=== PATIENT | female | born 1995 | race Caucasian/White ===

== ENCOUNTER 2022-10-08 11:15 | Emergency (ER) | payer BC ==
[~2022-10-08] VITALS: Ht 177.8 cm; Wt 189.5 kg
[2022-10-08 11:22] VITALS: TEMP 97.6
[2022-10-08 11:52] LABS: COLLECTION METHOD CLEAN CATCH
[2022-10-08 12:10] LABS: MUCOUS Present (NOT PRESENT); SQUAMOUS EPITHELIAL 0-2 /hpf (0-10); URINE BACTERIA None Seen /hpf (NONE SEEN); URINE RBC >50 /hpf (0-2)
[2022-10-08 12:11] LABS: URINE APPEARANCE Cloudy (CLEAR/HAZY); URINE BLOOD 3+ (NEGATIVE); URINE COLOR OTHER (YELLOW); URINE GLUCOSE Negative (NEGATIVE); URINE KETONE TRACE (NEGATIVE); URINE NITRATE Negative (NEGATIVE); URINE PROTEIN(semi-quant) 2+ (NEGATIVE); URINE UROBILINOGEN 0.2 E.U/dL (0.2-1.0)
[2022-10-08] MEDS ORDERED: MINIPRESS2 MG (12:20)
[2022-10-08] MEDS ORDERED: MOBIC15 MG PO (12:20)
[2022-10-08] MEDS ORDERED: DEPO-PROVER150 MG/M1 IM (12:20)
[2022-10-08] MEDS ORDERED: PROZAC40 MG PO (12:21)
[2022-10-08] MEDS ORDERED: ADIPEX-P37.5 MG PO (12:21)
[2022-10-08] MEDS ORDERED: CLARITIN 1010 MG/TAB (12:21)
[2022-10-08] MEDS ORDERED: BUSPIRONE HCL7.5 MG PO (12:21)
[2022-10-08] MEDS ORDERED: LOPRESSOR 225 MG/TAB PO (12:21)
[2022-10-08] MEDS ORDERED: WELLBUTRIN SR150 M1 PO (12:22)
[2022-10-08] MEDS ORDERED: DITROPAN 5MG TAB5 MG (12:22)
[2022-10-08] MEDS ORDERED: [UNRECOGNIZED DRUG - REMARK] (12:22)
[2022-10-08] MEDS ORDERED: EMGALITY120 MG/1 M SQ (12:22)
[2022-10-08] MEDS ORDERED: NEURONTIN600 MG/TAB PO (12:22)
[2022-10-08] MEDS ORDERED: NURTEC ODT75 MG PO (12:23)
[2022-10-08] MEDS ORDERED: ZOFRAN ODT4 MG PO ×2 (12:23→13:37)
[2022-10-08] MEDS ORDERED: PEPCID 20MG TAB20 MG (12:23)
[2022-10-08] MEDS ORDERED: ONE-A-DAY ESSE1 EACH PO (12:23)
[2022-10-08 12:37] LABS: BASO # 0.1 K/mm3 (0.0-0.2); BASO % 0.6 % (0.0-2.0); EOS # 0.3 K/mm3 (0.0-0.7); EOS % 3.2 % (0.0-4.0); GRAN # 6.6 K/mm3 (1.4-6.5); GRAN % 69.9 % (42.2-75.2); HEMATOCRIT 38.6 % (37.0-47.0); HEMOGLOBIN 12.8 g/dl (12.5-16.0); LYMPH # 2.1 K/mm3 (1.2-3.4); LYMPH % 21.6 % (20.0-51.0); MEAN CELL VOLUME 82 fl (80.0-100.0); MEAN CORPUSCULAR HEMOGLOBIN 27 pg (27-31); MEAN CORPUSCULAR HGB CONC 33 g/dl (33.0-37.0); MEAN PLATELET VOLUME 9.8 fl (7.4-10.4); MONO # 0.4 K/mm3 (0.1-0.6); MONO % 4.4 % (1.7-9.3); PLATELET COUNT 260 K/mm3 (130-400); RED BLOOD COUNT 4.73 M/mm3 (4.10-5.30); REDCELL DISTRIBUTION WIDTH-CV 14.4 % (11.5-14.5)
[2022-10-08 12:47] LABS: ALBUMIN 3.7 gm/dL (3.5-5.0); BILIRUBIN,TOTAL 0.7 mg/dL (0.2-1.2); CALCIUM 9.4 mg/dL (8.4-10.2); CREATININE, serum 0.89 mg/dL (0.57-1.11); POTASSIUM 3.8 mmol/L (3.5-4.5); TOTAL PROTEIN 7.3 gm/dL (6.2-8.1)
[2022-10-08] MEDS ORDERED: NORCO 325 MG-51 TAB PO (13:36)
[2022-10-08] MEDS ORDERED: CEPHALEXIN500 M1 PO (13:36)
[2022-10-08 14:17] VITALS: BP 133/89; PULSE 77
== END 2022-10-08 14:20 | disposition home or self-care (01) ==
LOC: COL.ER 11:15
PROVIDERS: Emergency Medicine; Physician Assistant
DX: N30.90 Cystitis, unspecified without hematuria (principal); E66.9 Obesity, unspecified; Z87.442 Personal history of urinary calculi; Z68.43 Body mass index [BMI] 50.0-59.9, adult
CPT/HCPCS: J0696; J1885; J2270; J2405; J7030

== ENCOUNTER 2023-08-02 06:07 | Day surgery (SDC) | payer MEDICAID ==
[~2023-08-02] VITALS: Ht 177.8 cm; Wt 180.7 kg
[~2023-08-02 06:07] MED LIST: ADIPEX-P37.5 MG PO; BUSPIRONE HCL7.5 MG PO; CEPHALEXIN500 M1 PO; CLARITIN 1010 MG/TAB; DEPO-PROVER150 MG/M1 IM; DITROPAN 5MG TAB5 MG; EMGALITY120 MG/1 M SQ; LOPRESSOR 225 MG/TAB PO; MINIPRESS2 MG; MOBIC15 MG PO; NEURONTIN600 MG/TAB PO; NORCO 325 MG-51 TAB PO; NURTEC ODT75 MG PO; ONE-A-DAY ESSE1 EACH PO; PEPCID 20MG TAB20 MG; PROZAC40 MG PO; WELLBUTRIN SR150 M1 PO; ZOFRAN ODT4 MG PO; [UNRECOGNIZED DRUG - REMARK]
[2023-08-02] MEDS ORDERED: FLOMAX 0.40.4 MG/CAP PO (07:03)
[2023-08-02] MEDS ORDERED: PROTONIX 40MG T40 MG PO (07:04)
[2023-08-02] MEDS ORDERED: NATURE'S BLE1000 MCG (07:05)
[2023-08-02] MEDS ORDERED: CLINDAGEL 40 ML40 ML TOP (07:08)
[2023-08-02] MEDS ORDERED: DEPO-PROVE150 MG/1 M IM (07:09)
[2023-08-02] MEDS ORDERED: GLUCOPHAGE500 MG/TAB PO (07:12)
[2023-08-02 08:27] VITALS: BP 126/80; PULSE 64; TEMP 97
[2023-08-02 08:41] VITALS: BP 119/84; PULSE 65
[2023-08-02 08:48] VITALS: BP 138/97; PULSE 72; TEMP 97
[2023-08-02 08:56] VITALS: BP 125/77; PULSE 69
--- NOTE | 2023-08-02 09:26 | NUR ---
0827-PATIENT ARRIVED TO [facility] VIA CART, ALERT AND ORIENTED ON ARRIVAL. FRIEND WAITING AT BEDSIDE. VITAL SIGNS TAKEN, VSS. PATIENT DENIES PAIN OR NAUSEA. REPORT OBTAINED FROM BERNADINE HARRELL. 0841-PT TOLERATING PO INTAKE, VSS. DENIES COMPLAINTS 0856-DISCHARGE PAPERWORK REVIEWED WITH PT AND FRIEND, QUESTIONS INVITED. IV CATHETER DISCONTINUED, TIP INTACT. PRESSURE HELD AND BANDAGE APPLIED. PATIENT DRESSED INDEPENDENTLY 0910-DR. CARTER AT BEDSIDE, DISCUSSED PROCEDURE FINDINGS, QUESTIONS INVITED. 0918-PATIENT DISCHARGED HOME TO [facility] VIA WHEELCHAIR, ACCOMPANIED BY FRIEND. ALL BELONGINGS AND DC PAPERWORK SENT WITH PT.
== END 2023-08-02 09:18 | disposition home or self-care (01) ==
LOC: SDCO 06:07
DX: K22.4 Dyskinesia of esophagus (principal); R07.89 Other chest pain
CPT/HCPCS: J2704; J7120

== ENCOUNTER 2023-08-19 10:52 | Emergency (ER) | payer MEDICAID ==
[~2023-08-19] VITALS: Ht 177.8 cm; Wt 180.9 kg
[~2023-08-19 10:52] MED LIST changes: +CLINDAGEL 40 ML40 ML TOP; +DEPO-PROVE150 MG/1 M IM; +FLOMAX 0.40.4 MG/CAP PO; +GLUCOPHAGE500 MG/TAB PO; +NATURE'S BLE1000 MCG; +PROTONIX 40MG T40 MG PO
[2023-08-19 10:58] VITALS: TEMP 99.1
[2023-08-19 12:51] LABS: BASO % 0.4 % (0.0-2.0); EOS # 0.3 K/mm3 (0.0-0.7); EOS % 3.1 % (0.0-4.0); GRAN # 6.9 K/mm3 (1.4-6.5); GRAN % 81.1 % (42.2-75.2); HEMOGLOBIN 11.7 g/dl (12.5-16.0); LYMPH # 0.9 K/mm3 (1.2-3.4); MEAN CELL VOLUME 82 fl (80.0-100.0); MEAN CORPUSCULAR HEMOGLOBIN 26 pg (27-31); MEAN CORPUSCULAR HGB CONC 32 g/dl (33.0-37.0); MONO # 0.3 K/mm3 (0.1-0.6); MONO % 3.9 % (1.7-9.3); PLATELET COUNT 243 K/mm3 (130-400); RED BLOOD COUNT 4.52 M/mm3 (4.10-5.30); REDCELL DISTRIBUTION WIDTH-CV 13.6 % (11.5-14.5)
[2023-08-19 12:58] LABS: ALBUMIN 3.3 gm/dL (3.5-5.0); BILIRUBIN,TOTAL 0.5 mg/dL (0.2-1.2); CALCIUM 8.8 mg/dL (8.4-10.2); CREATININE, serum 0.82 mg/dL (0.57-1.11); POTASSIUM 3.4 mmol/L (3.5-4.5)
[2023-08-19] MEDS ORDERED: PAXLOVID CO-PA1 EACH PO (14:34)
[2023-08-19 14:39] VITALS: BP 123/80; PULSE 87
== END 2023-08-19 14:39 | disposition home or self-care (01) ==
LOC: COL.ER 10:52
PROVIDERS: Nurse Practitioner
DX: U07.1 COVID-19 (principal); R50.9 Fever, unspecified; R53.83 Other fatigue; R05.9 Cough, unspecified; R09.89 Other specified symptoms and signs involving the circulatory and respiratory systems; R06.02 Shortness of breath; R52 Pain, unspecified